=== PATIENT | female | born 1995 | race Caucasian/White ===

== ENCOUNTER 2021-09-07 22:42 | Emergency (ER) | payer OTHER, SELFPAY ==
--- NOTE | ~2021-09-07 | XR_ITS ---
EXAMINATION: XR knee LT 3V DATE: 09/07/2021 23:36 INDICATION: Left knee pain and swelling. TECHNIQUE: 3 views of left knee were obtained. COMPARISON: None. FINDINGS: Bone alignment is normal. No fracture. Joint spaces are well maintained. There is no knee j oint effusion. IMPRESSION: 1. Normal left knee. Reviewed, dictated and finalized at location A. IMPRESSION: 1. Normal left knee.
[2021-09-07 22:48] VITALS: BP 147/93; PULSE 114; RESP 16; TEMP 36.6; O2SAT 97
--- NOTE | 2021-09-07 23:07 | ED.LOWEXIN ---
HPI - Extremity Injury (Lower) General Chief Complaint: Extremity Injury, Lower Stated Complaint: left knee pain Time Seen by Provider: 09/07/21 22:56 History of Present Illness HPI Narrative: 25-year-old female presents emergency room secondary to pain to her left knee. She was going up some stairs when she twisted her left knee. She has had a history of a prior injury to the same knee. No fractures never had any surgical procedures. Hurts when she tries to bear weight on it. Denies any other injuries at this time. Related Data Allergies Allergy/AdvReac Type Severity Reaction Status Date / Time acetaminophen Allergy Hives Verified 09/07/21 22:52 Review of Systems Review of Systems: CONSTITUTIONAL: Denies fever, chills, or sweats. EYES: Denies visual changes, redness, or discharge. ENT: Denies rhinorrhea, congestion, sore throat, or otalgia. CARDIOVASCULAR: Denies chest pain, palpitations, or edema. RESPIRATORY: Denies cough or dyspnea. GASTROINTESTINAL: Denies abdominal pain, nausea, vomiting, or diarrhea. GENITOURINARY: Denies dysuria or hematuria. SKIN: Denies rash or itching. MUSCULOSKELETAL: Pain to the left knee as noted in the HPI. Denies any back pain. NEUROLOGIC: Denies headache, numbness, or weakness. PSYCHIATRIC: Denies anxiety or depression. [facility] Past Medical History Medical History No pertinent past medical history Surgical History Surgical History History of nasal surgery Social History Social History Tobacco type: e-cigarettes/vaping Alcohol use details: Occasional Exam Narrative: APPEARANCE: Well appearing, no pain or distress, well-nourished. Head normocephalic and atraumatic. EYES: PERRLA/EOMI, conjunctivae very clear. NECK: Supple. No adenopathy, no masses. RESPIRATORY: Airway patent, respirations nonlabored. Clear to auscultation bilaterally, no rales, rhonchi, wheezing. CARDIOVASCULAR: Regular rate and rhythm without murmurs, rubs, or gallops. ABDOMINAL: Soft, nontender, nondistended, no hepatosplenomegaly Musculoskeletal: Some tenderness to palpation of the left knee but no obvious deformity. No effusion. No tenderness to the left foot and ankle region. NEURO: Alert. Cranial nerves II through XII intact. Normal gait. Good coordination. Nonfocal examination. SKIN:: Warm, dry. Normal Color PSYCHIATRIC: Normal affect/mood, normal interaction Course Vital Signs Vital signs: Vital Signs Temperature 97.8 F 09/07/21 22:48 Pulse Rate 114 H 09/07/21 22:48 Respiratory Rate 16 09/07/21 22:48 Blood Pressure 147/93 H 09/07/21 22:48 Pulse Oximetry 97 09/07/21 22:48 Oxygen Delivery Room Air 09/07/21 22:48 Temperature 97.8 F 09/07/21 22:48 Pulse Rate 114 H 09/07/21 22:48 Respiratory Rate 16 09/07/21 22:48 Blood Pressure 147/93 H 09/07/21 22:48 Pulse Oximetry 97 09/07/21 22:48 Oxygen Delivery Room Air 09/07/21 22:48 MDM - Extremity Injury (Lower) MDM Narrative Medical decision making narrative: X-rays read by me shows no fracture or dislocation. No evidence of any effusion. This was all reviewed with the patient. She will be fitted with a left knee immobilizer. Also treated with crutches. Advised her to follow with orthopedic surgeon if this is not getting significantly better in the next several days. Imaging Data My impression: Negative for any fracture or dislocation is noted by me Discharge Plan Discharge Clinical Impression: Acute internal derangement of left knee Patient Disposition: Home, Self-Care Condition: Stable Instructions: Knee Sprain (ED) Additional Instructions: Ice to decrease swelling. Return if worse. Use crutches as needed. Prescriptions: New naproxen 500 mg tablet 500 mg PO BID PRN (Reason: pain) Qty: 20 0RF Follow-up/Referrals:
[2021-09-07] MEDS: NAPROXEN 500 MG TABLET PO (23:13)
--- NOTE | 2021-09-07 23:27 | PC.NURSE ---
Patient taken to xray via stretcher.
== END 2021-09-07 23:58 | disposition home or self-care (01) ==
PROVIDERS: Emergency Provider Emergency Medicine
DX: M23.92 Unspecified internal derangement of left knee (principal); S89.92XA Unspecified injury of left lower leg, initial encounter; X50.9XXA Other and unspecified overexertion or strenuous movements or postures, initial encounter
CPT/HCPCS: 73562; 99283; A9270

== ENCOUNTER 2021-09-09 09:33 | Emergency (ER) | payer OTHER, SELFPAY ==
[2021-09-09 09:49] VITALS: BP 108/64; PULSE 75; RESP 20; TEMP 37.2; O2SAT 98
--- NOTE | 2021-09-09 09:54 | ED.NAVMDI ---
HPI - Nausea/Vomiting/Diarrhea General Chief complaint: Abdominal Pain Stated complaint: bloody emesis, diarrhea Time Seen by Provider: 09/09/21 09:44 History of Present Illness HPI Narrative: 25-year-old female presents emergency room for evaluation of vomiting and diarrhea that began this morning. Patient states that she has multiple episodes of bilious vomiting this morning, and then noticed scant amount of blood streaks. Patient also reports lower abdominal cramping that is worse prior to episodes of diarrhea. Unknown last menstrual period due to having IUD in place. Related Data Allergies Allergy/AdvReac Type Severity Reaction Status Date / Time acetaminophen Allergy Hives Verified 09/07/21 22:52 Review of Systems Review of Systems: CONSTITUTIONAL: Denies fever, chills, or sweats. EYES: Denies visual changes, redness, or discharge. ENT: Denies rhinorrhea, congestion, sore throat, or otalgia. CARDIOVASCULAR: Denies chest pain, palpitations, or edema. RESPIRATORY: Denies cough or dyspnea. GASTROINTESTINAL: Reports abdominal pain, nausea, vomiting, and diarrhea. GENITOURINARY: Denies dysuria or hematuria. SKIN: Denies rash or itching. MUSCULOSKELETAL: Denies back pain, joint pain, or myalgia. NEUROLOGIC: Denies headache, numbness, dizziness, or weakness. PSYCHIATRIC: Denies anxiety or depression. PMFSH Past Medical History Medical History No pertinent past medical history Surgical History Surgical History History of nasal surgery Social History Social History Tobacco type: e-cigarettes/vaping Alcohol use details: Occasional Exam Narrative: GENERAL: Well-appearing, well-nourished, and in no acute distress. HEAD: Normocephalic, atraumatic. EYES: PERRLA and EOMI. CHEST: Clear to auscultation. No respiratory distress. No wheezes rales or rhonchi HEART: Regular rate and rhythm. No murmur heard. Normal peripheral pulses. ABDOMEN: Soft, nontender, nondistended, normal active bowel sounds. EXTREMITIES: Normal range of motion. No edema. SKIN: Warm, dry, no rash. NEURO: No focal deficits. Alert and oriented x3. PSYCH: Normal mood and affect. Course Vital Signs Vital signs: Vital Signs Temperature 37.2 C 09/09/21 09:49 Pulse Rate 75 09/09/21 09:49 Respiratory Rate 20 09/09/21 09:49 Blood Pressure 108/64 09/09/21 09:49 Pulse Oximetry 98 09/09/21 09:49 Oxygen Delivery Room Air 09/09/21 09:49 Temperature 37.2 C 09/09/21 09:49 Pulse Rate 75 09/09/21 09:49 Respiratory Rate 20 09/09/21 09:49 Blood Pressure 108/64 09/09/21 09:49 Pulse Oximetry 98 09/09/21 09:49 Oxygen Delivery Room Air 09/09/21 09:49 MDM - Nausea/Vomiting/Diarrhea MDM Narrative Medical decision making narrative: 25-year-old female presented with nausea vomiting and diarrhea since this morning. Differentials likely acute gastroenteritis. Abdominal exam was without any peritoneal signs. Patient is currently euvolemic without any evidence of dehydration. Patient's not immunocompromise. Diarrhea is nonbloody so less likely of inflammatory bowel disease. No evidence of a surgical abdomen or acute medical emergency such as a bowel obstruction. Patient does have suprapubic tenderness, UA shows evidence of urinary tract infection. Lab Data Result diagrams: 09/09/21 09:59 09/09/21 09:59 Labs: Lab Results 09/09/21 09/09/21 09/09/21 Range/Units 09:59 09:59 10:00 WBC 10.3 H (4.5-10.0) K/mm3 RBC 4.89 (4.2-5.4) M/mm3 Hgb 13.6 (12.0-15.0) g/dL Hct 41.2 (37.0-47.0) % MCV 84.3 (80-100) fl MCH 27.8 (26-34) pg MCHC 33.0 (32-36) g/dl RDW 15.4 H (11.5-14.5) % Plt Count 390 H (150-375) k/mm3 MPV 8.7 (7.4-10.4) fl Immature Gran % (Auto) 0.3 (0-0.5) % Neut
[2021-09-09 10:06] LABS: Basophils Absolute Auto 0.1 K/mm3 (0.0-0.1); Basophils Percent Auto 0.9 % (0.2-1.2); Eosinophils Absolute Auto 0.3 K/mm3 (0-0.3); Eosinophils Percent Auto 2.8 % (0-4.4); Hematocrit 41.2 % (37.0-47.0); Hemoglobin 13.6 g/dL (12.0-15.0); Immature Granulocyte Absolute 0.03 K/mm3 (0.00-0.031); Immature Granulocyte Percent A 0.3 % (0-0.5); Lymphocytes Absolute Auto 2.53 K/mm3 (0.9-3.2); Lymphocytes Percent Auto 24.5 % (18.3-44.2); Mean Corpuscular Hemoglobin 27.8 pg (26-34); Mean Corpuscular Volume 84.3 fl (80-100); Mean Platelet Volume 8.7 fl (7.4-10.4); Monocytes Absolute Auto 0.4 K/mm3 (0.1-0.6); Monocytes Percent Auto 3.4 % (2.6-8.5); Neutrophils Percent Auto 68.1 % (45.5-73.1); Platelet Count Result 390 k/mm3 (150-375); Red Blood Count 4.89 M/mm3 (4.2-5.4); Red Cell Distribution Width 15.4 % (11.5-14.5); White Blood Count 10.3 K/mm3 (4.5-10.0)
[2021-09-09 10:08] LABS: Appearance Urine Slightly Cloudy (Clear); Bilirubin Urine Negative (Negative); Blood Urine 2+ (Negative); Glucose Urine UA Negative (Negative); Ketones Urine Negative (Negative); Leukocyte Esterase Ur 1+ LEU/UL (Negative); Nitrate Urine Negative (Negative); Protein Urine Negative (Negative); Urobilinogen Urine 0.2 mg/dL (<2.0)
[2021-09-09] MEDS: ONDANSETRON INJ 4 MG/2 ML VIAL IV PUSH (10:10)
[2021-09-09] MEDS: PANTOPRAZOLE SODIUM IV 40 MG VIAL IV PUSH (10:10)
[2021-09-09] MEDS: SODIUM CHLORIDE 0.9% IV 1,000 ML 999 ML IV CONT (10:11)
[2021-09-09 10:12] LABS: Add Urine Microscopic? YES; Color Urine Light Yellow (Yellow)
[2021-09-09 10:15] LABS: Bacteria Urine Trace /hpf; Mucus Urine Rare /lpf; RBC Urine 0-2 /hpf (0-2); Squamous Epithelial Cell Urine Moderate /hpf (Few)
[2021-09-09 10:16] LABS: Alanine Aminotransferase 19 U/L (6-35); Albumin Level 3.8 g/dL (3.5-5.1); Alkaline Phosphatase 51 U/L (38-126); Anion Gap 9 mmol/L (8-16); Aspartate Amino Transferase 26 U/L (14-36); Bilirubin,Total 0.1 mg/dL (0.2-1.3); Blood Urea Nitrogen 13 mg/dL (7-17); Calcium 7.9 mg/dL (8.4-10.2); Carbon Dioxide 21 mmol/L (22-30); Chloride 108 mmol/L (98-107); Estimated CRCL calculation 149 ml/min; Estimated Glomerular Filt Rate > 60; Glucose 89 mg/dL (65-110); Sodium 138 mmol/L (137-145)
[2021-09-09] MEDS: METOCLOPRAMIDE HCL INJ 10 MG/2 ML VIAL IV PUSH (11:10)
[2021-09-09] MEDS: diphenhydrAMINE HCl INJ 50 MG/ML VIAL 25 MG IV PUSH (11:10)
[2021-09-09] MEDS: PROCHLORPERAZINE EDISYLATE 10 MG/2 ML VIAL 5 MG IV PUSH (11:28)
== END 2021-09-09 12:12 | disposition home or self-care (01) ==
PROVIDERS: Emergency Provider Nurse Practitioner Family
DX: N39.0 Urinary tract infection, site not specified (principal); R11.10 Vomiting, unspecified; F17.290 Nicotine dependence, other tobacco product, uncomplicated; Z97.5 Presence of (intrauterine) contraceptive device
CPT/HCPCS: 36415; 80053; 81001; 81025; 85025; 96361; 96374; 96375; 99284; C9113; J0780; J1200; J2405; J2765; J7030

== ENCOUNTER 2021-11-23 17:10 | Emergency (ER) | payer OTHER, SELFPAY ==
--- NOTE | 2021-11-23 17:13 | ECG_ITS ---
Measurements Intervals [place] Rate: 83 P: 10 [place]: 132 QRS: 83 QRSD: 97 T: 41 QT: 373 QTc: 439 Interpretive Statements SINUS RHYTHM NORMAL ECG NO PREVIOUS ECG AVAILABLE FOR COMPARISON Electronically Signed On 11-23-2021 20:18:09 CDT by Keanu Brown D.O.
[2021-11-23 17:15] VITALS: BP 117/88; PULSE 103; RESP 16; TEMP 37; O2SAT 98
[2021-11-23 17:28] LABS: Basophils Absolute Auto 0.1 K/mm3 (0.0-0.1); Basophils Percent Auto 1.2 % (0.2-1.2); Eosinophils Absolute Auto 0.5 K/mm3 (0-0.3); Eosinophils Percent Auto 7.3 % (0-4.4); Hemoglobin 13.9 g/dL (12.0-15.0); Immature Granulocyte Absolute 0.01 K/mm3 (0.00-0.031); Immature Granulocyte Percent A 0.1 % (0-0.5); Lymphocytes Absolute Auto 1.99 K/mm3 (0.9-3.2); Lymphocytes Percent Auto 29.2 % (18.3-44.2); Mean Corpuscular HGB Conc 33.1 g/dl (32-36); Mean Corpuscular Hemoglobin 27.9 pg (26-34); Mean Corpuscular Volume 84.3 fl (80-100); Mean Platelet Volume 8.5 fl (7.4-10.4); Monocytes Absolute Auto 0.3 K/mm3 (0.1-0.6); Neutrophils Percent Auto 58.2 % (45.5-73.1); Platelet Count Result 357 k/mm3 (150-375); Red Blood Count 4.98 M/mm3 (4.2-5.4); White Blood Count 6.8 K/mm3 (4.5-10.0)
[2021-11-23 17:42] LABS: Alanine Aminotransferase 24 U/L (6-35); Albumin Level 4.2 g/dL (3.5-5.1); Alkaline Phosphatase 57 U/L (38-126); Anion Gap 12 mmol/L (8-16); Aspartate Amino Transferase 47 U/L (14-36); Bilirubin,Total 0.3 mg/dL (0.2-1.3); Blood Urea Nitrogen 9 mg/dL (7-17); Calcium 8.1 mg/dL (8.4-10.2); Carbon Dioxide 22 mmol/L (22-30); Chloride 109 mmol/L (98-107); Estimated CRCL calculation 145 ml/min; Estimated Glomerular Filt Rate > 60; Glucose 98 mg/dL (65-110); Lipase 73 U/L (23-300); Sodium 143 mmol/L (137-145)
[2021-11-23] MEDS: SODIUM CHLORIDE 0.9% IV 1,000 ML 999 ML IV CONT (17:45)
--- NOTE | 2021-11-23 17:48 | ED.NAVMDI ---
HPI - Nausea/Vomiting/Diarrhea General Chief complaint: Nausea/Vomiting/Diarrhea Stated complaint: COVID +, N/V/SOB Time Seen by Provider: 11/23/21 17:20 History of Present Illness HPI Narrative: 26-year-old female presents the emergency room via EMS for evaluation of nausea vomiting began this morning. Patient states that she was recently diagnosed with COVID, and is experiencing postnasal drip and sinus congestion and a nonproductive cough. Patient states that she has swallowing all of her sinus congestion. Reports multiple episodes of nonbilious nonbloody vomiting. Denies any abdominal pain, fever, diarrhea Related Data Allergies Allergy/AdvReac Type Severity Reaction Status Date / Time acetaminophen Allergy Hives Verified 11/23/21 17:12 Review of Systems Review of Systems: CONSTITUTIONAL: Denies fever, chills, or sweats. EYES: Denies visual changes, redness, or discharge. ENT: Denies rhinorrhea, congestion, sore throat, or otalgia. CARDIOVASCULAR: Denies chest pain, palpitations, or edema. RESPIRATORY: Denies cough or dyspnea. GASTROINTESTINAL: Reports nausea and vomiting GENITOURINARY: Denies dysuria or hematuria. SKIN: Denies rash or itching. MUSCULOSKELETAL: Denies back pain, joint pain, or myalgia. NEUROLOGIC: Denies headache, numbness, dizziness, or weakness. PSYCHIATRIC: Denies anxiety or depression. PMFSH Past Medical History Medical History No pertinent past medical history Surgical History Surgical History History of nasal surgery Social History Social History Tobacco type: e-cigarettes/vaping Alcohol use details: Occasional Exam Narrative: GENERAL: Well-appearing, well-nourished, no physical limitations, and in no acute distress. HEAD: Normocephalic, atraumatic. EYES: Conjunctivae normal, PERRLA and EOMI. CHEST: Clear to auscultation. No respiratory distress. No wheezes rales or rhonchi. No tenderness. HEART: Regular rate and rhythm. No murmur heard. Normal peripheral pulses. ABDOMEN: Soft, nontender, nondistended, normal active bowel sounds. EXTREMITIES: Normal range of motion. No edema. No clubbing or cyanosis SKIN: Warm, dry, no rash. No noted wounds NEURO: No focal deficits. Alert and oriented x3. MAEW. CN's II-XI intact bilaterally, normal gait PSYCH: Cooperative. Normal mood and affect. Course Vital Signs Vital signs: Vital Signs Temperature 37.0 C 11/23/21 17:15 Pulse Rate 103 H 11/23/21 17:15 Respiratory Rate 16 11/23/21 17:15 Blood Pressure 117/88 11/23/21 17:15 Pulse Oximetry 98 11/23/21 17:15 Temperature 37.0 C 11/23/21 17:15 Pulse Rate 103 H 11/23/21 17:15 Respiratory Rate 16 11/23/21 17:15 Blood Pressure 117/88 11/23/21 17:15 Pulse Oximetry 98 11/23/21 17:15 MDM - Nausea/Vomiting/Diarrhea Lab Data Result diagrams: 11/23/21 17:22 11/23/21 17:22 Labs: Lab Results 11/23/21 11/23/21 11/23/21 Range/Units 17:22 17:22 17:28 WBC 6.8 (4.5-10.0) K/mm3 RBC 4.98 (4.2-5.4) M/mm3 Hgb 13.9 (12.0-15.0) g/dL Hct 42.0 (37.0-47.0) % MCV 84.3 (80-100) fl MCH 27.9 (26-34) pg MCHC 33.1 (32-36) g/dl RDW 15.0 H (11.5-14.5) % Plt Count 357 (150-375) k/mm3 MPV 8.5 (7.4-10.4) fl Immature Gran % (Auto) 0.1 (0-0.5) % Neut % (Auto) 58.2 (45.5-73.1) % Lymph % (Auto) 29.2 (18.3-44.2) % Ware % (Auto) 4.0 (2.6-8.5) % Eos % (Auto) 7.3 H (0-4.4) % Baso % (Auto) 1.2 (0.2-1.2) % Lymph # (Auto) 1.99 (0.9-3.2) K/mm3 Ware # (Auto) 0.3 (0.1-0.6) K/mm3 Eos # (Auto) 0.5 H (0-0.3) K/mm3 Baso # (Auto) 0.1 (0.0-0.1) K/mm3 Abs Immat Gran (auto) 0.01 (0.00-0.031) K/mm3 Absolute Neuts (auto) 4.0 (1.3-6.7) K/mm3 Absolute Nucleated RBC 0.0 (0.0-0.012) K/mm3 Nuc
[2021-11-23 18:02] LABS: Appearance Urine Clear (Clear); Bilirubin Urine Negative (Negative); Blood Urine 1+ (Negative); Color Urine Yellow (Yellow); Glucose Urine UA Negative (Negative); Ketones Urine Negative (Negative); Leukocyte Esterase Ur Trace LEU/UL (Negative); Nitrate Urine Negative (Negative); Protein Urine Negative (Negative); Specific Grav Ur 1.015 (1.001-1.035); Urobilinogen Urine 0.2 mg/dL (<2.0); pH Urine 7.5 (5.0-9.0)
[2021-11-23 18:17] LABS: Add Urine Microscopic? YES
[2021-11-23 18:18] LABS: WBC Urine 0-3 /hpf
[2021-11-23 18:19] LABS: Bacteria Urine Trace /hpf; Squamous Epithelial Cell Urine Many /hpf (Few)
[2021-11-23 18:24] VITALS: BP 130/76; PULSE 80; RESP 16; O2SAT 99
== END 2021-11-23 18:39 | disposition home or self-care (01) ==
PROVIDERS: Emergency Medicine; Emergency Provider Nurse Practitioner Family
DX: U07.1 COVID-19 (principal); R11.2 Nausea with vomiting, unspecified; R09.81 Nasal congestion
CPT/HCPCS: 36415; 80053; 81001; 81025; 83690; 85025; 93005; 99283; J7030

== ENCOUNTER 2021-12-05 08:00 | Emergency (ER) | payer OTHER, SELFPAY ==
[2021-12-05 07:55] VITALS: BP 130/96; PULSE 76; RESP 16; TEMP 36.5; O2SAT 98
--- NOTE | 2021-12-05 08:27 | ED.NAVMDI ---
HPI - Nausea/Vomiting/Diarrhea General Chief complaint: Nausea/Vomiting/Diarrhea Stated complaint: n/v x 3 days, L shoulder pain Time Seen by Provider: 12/05/21 08:07 Source: patient and RN notes reviewed Mode of arrival: ambulatory Limitations: no limitations History of Present Illness HPI Narrative: This is a 26 year old female who presents for evaluation of nausea and vomiting. Patient states over 2 weeks ago she was diagnosed with COVID. She reports intermittent nausea, vomiting and diarrhea since her diagnosis. She also reports intermittent frontal headache as well since her diagnosis . Her headache has been constant for 4 days and it seems worse with vomiting. She also reports continues postnasal drainage. She reports lower abdominal pain cramping for 2 days without urinary symptoms or vaginal discharge. She was evaluated for these symptoms 12 days ago. She was prescribed antiemetic and decongestant but patient states she was not aware of those prescriptions. She last took ibuprofen 3 days ago. She reports she feels better with eating but she is still not eat very much . Related Data Home Medications Medication Instructions Recorded Confirmed multivitamin with iron tablet 12/05/21 Allergies Allergy/AdvReac Type Severity Reaction Status Date / Time acetaminophen Allergy Hives Verified 12/05/21 08:08 Review of Systems Review of Systems: All systems reviewed & are unremarkable except as noted in HPI and below Constitutional: Constitutional: Denies chills, Reports fatigue and Denies fever(s) ENT: Reports nasal congestion Cardiovascular: Cardiovascular: Denies chest pain Respiratory: Respiratory: Denies chest congestion and Denies cough Gastrointestinal: Gastrointestinal: Reports abdominal pain, Reports diarrhea, Reports nausea and Reports vomiting Genitourinary: Genitourinary: Denies nocturia, Denies dysuria and Denies vaginal discharge Musculoskeletal: Musculoskeletal: Denies back pain and Reports myalgias PMFSH Past Medical History Medical History No pertinent past medical history Surgical History Surgical History History of nasal surgery Social History Social History Tobacco type: e-cigarettes/vaping Alcohol use details: Occasional Exam Narrative: GENERAL: Well-appearing, well-nourished, and in no acute distress. HEAD: Normocephalic, atraumatic EYES: PERRLA and EOMI, conjunctiva clear without discharge EARS: TM's clear bilaterally without erythema or dullness NOSE: Nares clear, no rhinorrhea or epistaxis THROAT:Mucous membranes moist, Oropharynx normal without erythema, exudate, peritonsillar swelling or fluctuance NECK: Supple, without lymphadenopathy or mass RESPIRATORY: No respiratory distress, Airway patent, Respirations non-labored, Clear to auscultation without rales, rhonchi or wheeze HEART: Regular rate and rhythm. No murmur heard. Normal peripheral pulses. ABDOMEN: Soft, nontender, nondistended, normal active bowel sounds. No masses. No rebound or guarding, No organomegaly. EXTREMITIES: No edema, normal strength with full range of motion. SKIN: Warm, dry, normal color without rash NEURO: Alert and oriented x3. CN 2-12 grossly intact. No focal deficits. PSYCH: Normal mood and affect. Course Reevaluation(s) Reevaluation #1: PAtient states she feels better. She denies nausea. She is being hydrated and then she will be discharged. Date: 12/05/21 Time: 10:27 Vital Signs Vital signs: Vital Signs Temperature 97.7 F 12/05/21 07:55 Pulse Rate 76 12/05/21 07:55 Respiratory Rate 16 12/05/21 07:55 Blood Pressure 130/96 H 12/05/21 07:55 Pulse Oximetry 98 12/05/21 07:55 Oxygen Delivery Room Air 12/05/21 07:55 Temperature 97.7 F 12/05/21 07:55 Pulse Rate 75 12/05/21 10:39
[2021-12-05] MEDS: LACTATED RINGERS 1,000 ML 999 ML IV CONT ×2 (08:37)
[2021-12-05] MEDS: KETOROLAC 30 MG/ML VIAL (*BKC) IV PUSH (08:37)
--- NOTE | 2021-12-05 08:48 | PC.NURSE ---
Patient refused IV Benadryl and Reglan, states she does not want to be tired and is no longer nauseous following the administration of Zofran by EMS.
[2021-12-05 08:49] LABS: Basophils Absolute Auto 0.1 K/mm3 (0.0-0.1); Basophils Percent Auto 1.7 % (0.2-1.2); Eosinophils Absolute Auto 0.4 K/mm3 (0-0.3); Eosinophils Percent Auto 6.9 % (0-4.4); Hematocrit 44.7 % (37.0-47.0); Hemoglobin 14.8 g/dL (12.0-15.0); Immature Granulocyte Absolute 0.01 K/mm3 (0.00-0.031); Immature Granulocyte Percent A 0.2 % (0-0.5); Lymphocytes Absolute Auto 1.98 K/mm3 (0.9-3.2); Lymphocytes Percent Auto 34.3 % (18.3-44.2); Mean Corpuscular HGB Conc 33.1 g/dl (32-36); Mean Corpuscular Hemoglobin 28.1 pg (26-34); Mean Platelet Volume 8.4 fl (7.4-10.4); Monocytes Absolute Auto 0.5 K/mm3 (0.1-0.6); Neutrophils Absolute Auto 2.8 K/mm3 (1.3-6.7); Neutrophils Percent Auto 48.9 % (45.5-73.1); Platelet Count Result 320 k/mm3 (150-375); Red Blood Count 5.26 M/mm3 (4.2-5.4); Red Cell Distribution Width 15.1 % (11.5-14.5); White Blood Count 5.8 K/mm3 (4.5-10.0)
[2021-12-05 08:50] LABS: Appearance Urine Clear (Clear); Bilirubin Urine Negative (Negative); Blood Urine Negative (Negative); Color Urine Yellow (Yellow); Glucose Urine UA Negative (Negative); Ketones Urine Negative (Negative); Leukocyte Esterase Ur Negative LEU/UL (Negative); Nitrate Urine Negative (Negative); Protein Urine Negative (Negative); Specific Grav Ur <= 1.005 (1.001-1.035); Urobilinogen Urine 0.2 mg/dL (<2.0); pH Urine 5.5 (5.0-9.0)
[2021-12-05 08:52] VITALS: BP 111/74; BP 116/81; PULSE 71; PULSE 81
[2021-12-05 08:54] VITALS: BP 116/88; PULSE 87
[2021-12-05 08:58] LABS: Add Urine Microscopic? NO
[2021-12-05 09:01] LABS: Alanine Aminotransferase 24 U/L (6-35); Albumin Level 4.3 g/dL (3.5-5.1); Alkaline Phosphatase 48 U/L (38-126); Anion Gap 17 mmol/L (8-16); Aspartate Amino Transferase 35 U/L (14-36); Bilirubin,Total 0.2 mg/dL (0.2-1.3); Blood Urea Nitrogen 7 mg/dL (7-17); Calcium 8.1 mg/dL (8.4-10.2); Carbon Dioxide 21 mmol/L (22-30); Chloride 109 mmol/L (98-107); Estimated CRCL calculation 126 ml/min; Estimated Glomerular Filt Rate > 60; Glucose 106 mg/dL (65-110); Lipase 88 U/L (23-300); Potassium 3.9 mmol/L (3.4-5.0); Sodium 147 mmol/L (137-145)
--- NOTE | 2021-12-05 09:29 | PC.NURSE ---
Patient called this RN in to exam emesis. Patient states she just threw up stomach acid after drinking water that appears to be blood tinged sputum. Patient refusing any more nausea medications. CATRACHITO Carlos notified.
[2021-12-05 10:39] VITALS: BP 121/91; PULSE 75; RESP 16; O2SAT 99
--- NOTE | 2021-12-05 10:54 | PC.NURSE ---
IV fluids still infusing
== END 2021-12-05 12:17 | disposition home or self-care (01) ==
PROVIDERS: Emergency Provider General Practice
DX: K52.9 Noninfective gastroenteritis and colitis, unspecified (principal); F17.290 Nicotine dependence, other tobacco product, uncomplicated; Z86.16 Personal history of COVID-19
CPT/HCPCS: 36415; 80053; 81003; 81025; 83690; 85025; 96361; 96374; 99284; J1885; J7120

== ENCOUNTER 2022-03-23 15:07 | Emergency (ER) | payer OTHER, SELFPAY ==
[2022-03-23 15:07] VITALS: BP 136/88; PULSE 108; RESP 14; TEMP 36.8; O2SAT 96
--- NOTE | 2022-03-23 15:18 | ECG_ITS ---
Measurements Intervals [place] Rate: 85 P: [place]: 0 QRS: 77 QRSD: 90 T: 30 QT: 357 QTc: 425 Interpretive Statements SINUS RHYTHM BASELINE ARTIFACT- AVL, AVF NORMAL ECG COMPARED TO ECG 11/23/2021 17:13:35 NO SIGNIFICANT CHANGES Electronically Signed On 03-23-2022 18:36:10 CARTOGRAPHIC ENGINEER by Keanu Brown D.O.
--- NOTE | 2022-03-23 15:21 | ED.GENADULT ---
HPI - General Adult General Chief complaint: Psychiatric Symptoms <Kalpesh Fagan MD - Last Filed: 03/23/22 22:12> Stated complaint: SI with plan <Kalpesh Fagan MD - Last Filed: 03/23/22 22:12> Time Seen by Provider: 03/23/22 15:09 <Kalpesh Fagan MD - Last Filed: 03/23/22 22:12> History of Present Illness HPI narrative: 26-year-old female presents to the emergencu department for evaluation of increased suicidal ideation with a plan. Patient states approximately 3 years ago she had suicidal ideation and her plan was pills. Patient states she still has the same plan of taking pills. Patient reports last night she was drinking alcohol and then she had worsening thoughts of suicidal ideation. Patient denies taking any actions to actually hurt herself. Patient denies having a psychiatrist reports she does have a counselor that she has not seen in approximately 2 months. Patient did admit to drinking alcohol last night but states he did not drink any alcohol today. Patient is also complaining of lower back pain that has been ongoing for the last few months. Patient denies any pain with urination. <Kalpesh Fagan MD - Last Filed: 03/23/22 22:12> Related Data Home medications: Home Medications Medication Instructions Recorded Confirmed multivitamin with iron tablet 12/05/21 <Kalpesh Fagan MD - Last Filed: 03/23/22 22:12> Allergies/adverse reactions: Allergies Allergy/AdvReac Type Severity Reaction Status Date / Time acetaminophen Allergy Hives Verified 03/23/22 16:26 <Kalpesh Fagan MD - Last Filed: 03/23/22 22:12> Review of Systems Review of Systems: CONSTITUTIONAL: Denies fever, chills, or sweats. EYES: Denies visual changes, redness, or discharge. ENT: Denies rhinorrhea, congestion, sore throat, or otalgia. CARDIOVASCULAR: Denies chest pain, palpitations, or edema. RESPIRATORY: Denies cough or dyspnea. GASTROINTESTINAL: Denies abdominal pain, nausea, vomiting, or diarrhea. GENITOURINARY: Denies dysuria or hematuria. SKIN: Denies rash or itching. MUSCULOSKELETAL: See HPI NEUROLOGIC: Denies headache, numbness, or weakness. PSYCHIATRIC: See HPI <Kalpesh Fagan MD - Last Filed: 03/23/22 22:12> [facility] Past Medical History Medical History: Medical History No pertinent past medical history <Kalpesh Fagan MD - Last Filed: 03/23/22 22:12> Surgical History Surgical History: Surgical History History of nasal surgery <Kalpesh Fagan MD - Last Filed: 03/23/22 22:12> Social History Social History: Social History Tobacco type: e-cigarettes/vaping Alcohol use details: Occasional Substance use type: does not use <Kalpesh Fagan MD - Last Filed: 03/23/22 22:12> Exam Narrative: APPEARANCE: Well appearing, no pain, no distress, well-nourished. HEAD: normocephalic, atraumatic. EYES: PERRLA/EOMI, conjunctivae clear. NOSE: Normal no drainage EARS:TMS clear with good light reflex. THROAT: Pharynx clear, no exudate. NECK: Supple. No adenopathy, no masses. RESPIRATORY: Airway patent, respirations nonlabored. Clear to auscultation bilaterally, no rales, rhonchi, wheezing. CARDIOVASCULAR: Regular rate and rhythm without murmurs rubs or gallops. ABDOMINAL: Soft, nontender, nondistended, normal bowel sounds MUSCULOSKELETAL: Moves all extremities. Strength/ROM intact, No edema, No calf tenderness. NEURO: Alert. Cranial nerves II through XII intact. Grossly intact SKIN: Warm, dry. Normal Color PSYCHIATRIC: Increased suicidal ideation <Kalpesh Fagan MD - Last Filed: 03/23/22 22:12> Course Course Emergency Course: Patient denies taking any medications to herself. Patient was mildly tachycardic upon arrival. This may be due to dehydration due to her recent alcohol c
[2022-03-23] MEDS: SODIUM CHLORIDE 0.9% IV 1,000 ML 999 ML IV CONT (15:28)
[2022-03-23 15:53] LABS: Basophils Absolute Auto 0.1 K/mm3 (0.0-0.1); Basophils Percent Auto 0.9 % (0.2-1.2); Eosinophils Absolute Auto 0.2 K/mm3 (0-0.3); Hematocrit 40.5 % (37.0-47.0); Immature Granulocyte Absolute 0.04 K/mm3 (0.00-0.031); Immature Granulocyte Percent A 0.4 % (0-0.5); Lymphocytes Absolute Auto 2.32 K/mm3 (0.9-3.2); Lymphocytes Percent Auto 20.7 % (18.3-44.2); Mean Corpuscular HGB Conc 32.1 g/dl (32-36); Mean Corpuscular Hemoglobin 27.8 pg (26-34); Mean Corpuscular Volume 86.5 fl (80-100); Mean Platelet Volume 8.6 fl (7.4-10.4); Monocytes Absolute Auto 0.5 K/mm3 (0.1-0.6); Neutrophils Absolute Auto 8.1 K/mm3 (1.3-6.7); Platelet Count Result 423 k/mm3 (150-375); Red Blood Count 4.68 M/mm3 (4.2-5.4); White Blood Count 11.2 K/mm3 (4.5-10.0)
[2022-03-23 15:54] LABS: Add Urine Microscopic? NO; Appearance Urine Clear (Clear); Bilirubin Urine Negative (Negative); Blood Urine Negative (Negative); Color Urine Yellow (Yellow); Glucose Urine UA Negative (Negative); Ketones Urine Negative (Negative); Leukocyte Esterase Ur Negative LEU/UL (Negative); Nitrate Urine Negative (Negative); Protein Urine Negative (Negative); Specific Grav Ur <= 1.005 (1.001-1.035); Urobilinogen Urine 0.2 mg/dL (<2.0)
[2022-03-23 16:00] LABS: Squamous Epithelial Cell Urine Occasional /hpf (Few); WBC Urine 0-3 /hpf
[2022-03-23 16:14] LABS: Amphetamine Screen Urine Negative (Negative); Barbiturate Screen Urine Negative (Negative); Benzodiazepines Screen Urine Negative (Negative); Cannabinoid Screen Urine Negative (Negative); Cocaine Screen Urine Negative (Negative); Methadone Screen Urine Negative (Negative); Opiate Screen Urine Negative (Negative); Phencyclidine Screen Urine Negative (Negative)
[2022-03-23 16:15] LABS: Ethanol 435 mg/dL (<10)
[2022-03-23 16:25] LABS: Influenza A QL RT-PCR Negative (Negative); Influenza B QL RT-PCR Negative (Negative); RSV RNA, RT-PCR Negative (Negative); SARS-CoV-2 RNA PCR Negative
[2022-03-23 16:27] LABS: Acetaminophen < 10 ug/mL (10-30); Salicylate < 1.0 mg/dL (2-20)
[2022-03-23 16:37] LABS: Alanine Aminotransferase 17 U/L (6-35); Alkaline Phosphatase 55 U/L (38-126); Anion Gap 9 mmol/L (8-16); Aspartate Amino Transferase 23 U/L (14-36); Bilirubin,Total 0.1 mg/dL (0.2-1.3); Blood Urea Nitrogen 12 mg/dL (7-17); Calcium 7.7 mg/dL (8.4-10.2); Carbon Dioxide 22 mmol/L (22-30); Chloride 113 mmol/L (98-107); Estimated CRCL calculation 127 ml/min; Estimated Glomerular Filt Rate > 60; Glucose 94 mg/dL (65-110); Magnesium 1.6 mg/dL (1.6-2.3); Potassium 3.6 mmol/L (3.4-5.0); Sodium 144 mmol/L (137-145)
[2022-03-23] MEDS: CALCIUM CARBONATE (TUMS) 500 MG (200 MG ELEMENTAL) 400 MG PO (16:52)
[2022-03-23] MEDS: PANTOPRAZOLE SODIUM IV 40 MG VIAL IV PUSH (16:53)
--- NOTE | 2022-03-23 17:01 | PC.NURSE ---
regular precautionary diet tray ordered
[2022-03-23 17:07] LABS: Thyroid Stimulating Hormone 0.181 uIU/mL (0.465-4.680)
[2022-03-23] MEDS: NICOTINE (*PBKC) 14 MG PATCH 1 PATCH TRANSDERM (18:28)
[2022-03-23 21:04] VITALS: BP 114/68; PULSE 88; RESP 14; O2SAT 99
--- NOTE | 2022-03-23 22:33 | PC.NURSE ---
Patient awake and alert. States I'm no longer having any suicidal thoughts. I drank a bunch of water and took a nap and now I just want to go home . Patient educated that her BA level needs to be redrawn at 0000 and at that time we will reevaluate if her level is below the legal limit . Patient tearful but voices understanding.
--- NOTE | 2022-03-23 22:51 | PC.NURSE ---
pt updated on POC, water provided
--- NOTE | 2022-03-23 22:53 | PC.NURSE ---
Patient report given to GALE Vidal. All questions answered and care of patient transferred.
[2022-03-24 00:34] LABS: Ethanol 188 mg/dL (<10)
[2022-03-24 02:10] VITALS: BP 120/84; PULSE 72; RESP 18; TEMP 36.8; O2SAT 99
[2022-03-24 05:21] LABS: Ethanol 80 mg/dL (<10)
--- NOTE | 2022-03-24 06:02 | PC.NURSE ---
[facility] called to evaluate patient. will be enroute
--- NOTE | 2022-03-24 06:15 | PC.NURSE ---
pt updated on POC in that [facility] services are en route to assess pt and create POC. pt states that she is not SI/HI. pt is calm and cooperative at this time
[2022-03-24 12:09] VITALS: BP 134/87; PULSE 78; RESP 16; TEMP 36.7; O2SAT 100
--- NOTE | 2022-03-24 12:15 | PC.NURSE ---
food tray ordered at 1210
== END 2022-03-24 12:40 | disposition home or self-care (01) ==
PROVIDERS: Emergency Medicine; Emergency Provider Emergency Medicine
DX: F10.120 Alcohol abuse with intoxication, uncomplicated (principal); F32.A Depression, unspecified; R45.851 Suicidal ideations
CPT/HCPCS: 36415; 80053; 80307; 81003; 81025; 83735; 84443; 85025; 87637; 93005; 96361; 96374; 99284; A9270; C9113; J7030

== ENCOUNTER 2022-04-01 10:13 | Emergency (ER) | payer OTHER, SELFPAY ==
[2022-04-01] VITALS (8 sets, daily range): BP systolic 130–141; BP diastolic 88–99; PULSE 82–90; RESP 13–22; O2SAT 98–100
--- NOTE | ~2022-04-01 | XR_ITS ---
EXAMINATION: XR chest 2V DATE: 04/01/2022 10:43 INDICATION: Chest pain. Shortness of breath. Nausea. TECHNIQUE: Frontal and lateral views of the chest were obtained. COMPARISON: Chest single view 08/27/2021 FINDINGS: There is no pneumonia, pleural effusion, or pneumothorax. The heart size is normal. IMPRESSION: 1. No acute cardiopulmonary disease. Reviewed, dictated and finalized at location [facility] [employer]
--- NOTE | 2022-04-01 10:22 | ECG_ITS ---
Measurements Intervals [place] Rate: 88 P: 32 MT: 130 QRS: 92 QRSD: 91 T: 50 QT: 370 QTc: 450 Interpretive Statements SINUS RHYTHM RIGHT AXIS DEVIATION BASELINE ARTIFACT- I, III, AVR, AVL, AVF, V6 BORDERLINE ECG COMPARED TO ECG 03/23/2022 16:03:02 NO SIGNIFICANT CHANGES Electronically Signed On 04-01-2022 11:46:35 FLUID JET CUTTER OPERATOR by Keanu Brown D.O.
[2022-04-01] MEDS: ONDANSETRON HCL ODT 4 MG TABLET PO (10:38)
--- NOTE | 2022-04-01 11:00 | ED.CHESTPAIN ---
HPI - Chest Pain General Chief Complaint: Chest Pain Stated Complaint: chest pain Time Seen by Provider: 04/01/22 10:15 History of Present Illness HPI narrative: 26-year-old female history of anxiety and heavy alcohol use presents to the emergency room for evaluation of midsternal chest pain that she has had since last night. Patient also states she has been experiencing a cough, sinus congestion, postnasal drip and occasional vomiting. Chest pain does not radiate. Chest pain is intermittent and feels like somebody is punching her in the chest. Pain lasts for several minutes to several hours. Related Data Home Medications Medication Instructions Recorded Confirmed sertraline 50 mg tablet (Zoloft) 50 mg PO DAILY 04/01/22 04/01/22 Allergies Allergy/AdvReac Type Severity Reaction Status Date / Time acetaminophen AdvReac Dizziness Verified 04/01/22 10:24 Review of Systems Review of Systems: CONSTITUTIONAL: Denies fever, chills, or sweats. EYES: Denies visual changes, redness, or discharge. ENT: Denies rhinorrhea, congestion, sore throat, or otalgia. CARDIOVASCULAR: Reports chest pain RESPIRATORY: Denies cough or dyspnea. GASTROINTESTINAL: Reports vomiting GENITOURINARY: Denies dysuria or hematuria. SKIN: Denies rash or itching. MUSCULOSKELETAL: Denies back pain, joint pain, or myalgia. NEUROLOGIC: Denies headache, numbness, dizziness, or weakness. PSYCHIATRIC: Denies anxiety or depression. PMFSH Past Medical History Medical History No pertinent past medical history Surgical History Surgical History History of nasal surgery Social History Social History Tobacco type: e-cigarettes/vaping Alcohol use details: Occasional Substance use type: does not use Exam Narrative: GENERAL: Well-appearing, well-nourished, no physical limitations, and in no acute distress. HEAD: Normocephalic, atraumatic. EYES: Conjunctivae normal, PERRLA and EOMI. CHEST: Clear to auscultation. No respiratory distress. No wheezes rales or rhonchi. HEART: Regular rate and rhythm. No murmur heard. Normal peripheral pulses. ABDOMEN: Soft, nontender, nondistended, normal active bowel sounds. EXTREMITIES: Normal range of motion. No edema. No clubbing or cyanosis SKIN: Warm, dry, no rash. No noted wounds NEURO: No focal deficits. Alert and oriented x3. MAEW. CN's II-XI intact bilaterally, normal gait PSYCH: Cooperative. Anxious. Course Vital Signs Vital signs: Vital Signs Pulse Rate 90 04/01/22 10:21 Respiratory Rate 19 04/01/22 10:21 Blood Pressure 141/99 H 04/01/22 10:21 Pulse Oximetry 98 04/01/22 10:21 Oxygen Delivery Room Air 04/01/22 10:21 Pulse Rate 90 04/01/22 11:45 Respiratory Rate 22 H 04/01/22 11:45 Blood Pressure 130/88 04/01/22 10:31 Pulse Oximetry 100 04/01/22 11:15 Oxygen Delivery Room Air 04/01/22 10:21 MDM - Chest Pain MDM Narrative Medical decision making narrative: 26-year-old female history of anxiety depression and heavy alcohol use presents emergency room for evaluation of intermittent chest pain has been present since last night. Patient describes the pain as a punching sensation. Exam showed no evidence of volume overload. EKG showed no evidence of ischemia. Troponin was negative. Chest x-ray showed no evidence of cardiopulmonary disease. Upon record review, patient was found have abnormal thyroid. This could cause her to experience the chest pain and her intermittent episodes of bradycardia and tachycardia that she described. Patient could also be experiencing some GERD due to the heavy alcohol use. Will have patient with her primary care provider and patient received counseling on reducing the amount of alcohol she ingests. Lab Data Labs: Lab Results 04/01/22 04/01/22 Range/Units 11:08 1
--- NOTE | 2022-04-01 11:16 | PC.NURSE ---
Report received from Melisa BEASLEY including history and physical and plan of care
[2022-04-01 11:45] LABS: Ethanol 281 mg/dL (<10)
[2022-04-01 11:54] LABS: Troponin I < 0.012 ng/mL (0.000-0.034)
== END 2022-04-01 12:38 | disposition home or self-care (01) ==
PROVIDERS: Emergency Provider Nurse Practitioner Family
DX: R07.89 Other chest pain (principal); E05.90 Thyrotoxicosis, unspecified without thyrotoxic crisis or storm; F10.10 Alcohol abuse, uncomplicated; F17.290 Nicotine dependence, other tobacco product, uncomplicated; Y90.8 Blood alcohol level of 240 mg/100 ml or more; Z79.899 Other long term (current) drug therapy
CPT/HCPCS: 36415; 71046; 80307; 84484; 93005; 99284; A9270

== ENCOUNTER 2022-06-12 12:35 | Emergency (ER) | payer OTHER, SELFPAY ==
[2022-06-12 12:37] VITALS: BP 135/72; PULSE 94; RESP 18; TEMP 36.6; O2SAT 98
--- NOTE | 2022-06-12 12:45 | ECG_ITS ---
Measurements Intervals [place] Rate: 86 P: 15 NV: 119 QRS: 67 QRSD: 92 T: 29 QT: 349 QTc: 418 Interpretive Statements SINUS RHYTHM WITH SHORT NV INTERVAL BASELINE ARTIFACT- I, II, III, AVR, AVL, AVF BORDERLINE ECG COMPARED TO ECG 04/01/2022 10:23:00 NO SIGNIFICANT CHANGES Electronically Signed On 06-12-2022 13:16:37 CDT by Keanu Brown D.O.
[2022-06-12 13:03] LABS: Basophils Absolute Auto 0.1 K/mm3 (0.0-0.1); Eosinophils Absolute Auto 0.1 K/mm3 (0-0.3); Eosinophils Percent Auto 1.6 % (0-4.4); Hematocrit 44.5 % (37.0-47.0); Hemoglobin 14.6 g/dL (12.0-15.0); Immature Granulocyte Absolute 0.01 K/mm3 (0.00-0.031); Immature Granulocyte Percent A 0.2 % (0-0.5); Lymphocytes Absolute Auto 2.37 K/mm3 (0.9-3.2); Lymphocytes Percent Auto 48.1 % (18.3-44.2); Mean Corpuscular HGB Conc 32.8 g/dl (32-36); Mean Corpuscular Hemoglobin 28.2 pg (26-34); Mean Corpuscular Volume 85.9 fl (80-100); Mean Platelet Volume 8.6 fl (7.4-10.4); Monocytes Absolute Auto 0.4 K/mm3 (0.1-0.6); Monocytes Percent Auto 7.5 % (2.6-8.5); Neutrophils Absolute Auto 2.1 K/mm3 (1.3-6.7); Neutrophils Percent Auto 41.6 % (45.5-73.1); Platelet Count Result 450 k/mm3 (150-375); Red Blood Count 5.18 M/mm3 (4.2-5.4); Red Cell Distribution Width 15.2 % (11.5-14.5); White Blood Count 4.9 K/mm3 (4.5-10.0)
[2022-06-12 13:15] LABS: Alanine Aminotransferase 22 U/L (6-35); Albumin Level 4.3 g/dL (3.5-5.1); Alkaline Phosphatase 57 U/L (38-126); Anion Gap 11 mmol/L (8-16); Aspartate Amino Transferase 25 U/L (14-36); Bilirubin,Total 0.3 mg/dL (0.2-1.3); Blood Urea Nitrogen 9 mg/dL (7-17); Calcium 8.3 mg/dL (8.4-10.2); Carbon Dioxide 24 mmol/L (22-30); Chloride 115 mmol/L (98-107); Estimated CRCL calculation 98 ml/min; Estimated Glomerular Filt Rate > 60; Glucose 100 mg/dL (65-110); Potassium 3.8 mmol/L (3.4-5.0); Sodium 150 mmol/L (137-145)
--- NOTE | 2022-06-12 14:27 | PC.NURSE ---
Patient did not answer page X2 for xray. Patient not in the waiting room.
== END 2022-06-12 14:27 | disposition left against medical advice (07) ==
PROVIDERS: Emergency Provider Emergency Medicine
DX: R06.00 Dyspnea, unspecified (principal); Z53.21 Procedure and treatment not carried out due to patient leaving prior to being seen by health care provider
CPT/HCPCS: 36415; 80053; 85025; 93005; 99199